=== PATIENT | male | born 1960 | race Two or more races ===

== ENCOUNTER 2023-02-08 11:38 | Emergency (ER) | payer BC ==
[~2023-02-08] VITALS: Ht 167.6 cm; Wt 83.9 kg
[2023-02-08 11:49] VITALS: TEMP 98.7
[2023-02-08] MEDS ORDERED: IBUPROFEN 600 MG TABLET PO ONE (12:00)
[2023-02-08] MEDS ORDERED: ACETAMINOPHEN ES 500 MG TABLET PO ONE (12:00)
[2023-02-08] MEDS ORDERED: ACETAMINOPHEN ES 500 MG TABLET ONE (12:10)
[2023-02-08] MEDS ORDERED: IBUPROFEN 600 MG TABLET ONE (12:10)
[2023-02-08] MEDS ORDERED: IBUP-1953 PO (13:57)
[2023-02-08 14:25] VITALS: BP 142/66; O2SAT 100
== END 2023-02-08 14:26 | disposition home or self-care (01) ==
LOC: ER 11:38
DX: S49.82XA Other specified injuries of left shoulder and upper arm, initial encounter (principal); R51.9 Headache, unspecified; V49.29XA Unspecified car occupant injured in collision with other motor vehicles in nontraffic accident, initial encounter; Y93.89 Activity, other specified; Y92.89 Other specified places as the place of occurrence of the external cause; Y99.8 Other external cause status
CPT/HCPCS: 99284; 72125; 71045; 73030; 70450; L0172